=== PATIENT | male | born 1995 ===

== ENCOUNTER 2018-03-26 18:54 | Emergency (ER) | payer SELFPAY ==
[2018-03-26 20:07] VITALS: BP 146/94
--- NOTE | 2018-03-26 22:41 | Cat Scan Report ---
FINAL REPORT PROCEDURE: CT HEAD/BRAIN WO CON TECHNIQUE: Computerized tomography of the head was performed without contrast material. HISTORY: trauma COMPARISON: No prior studies are available for comparison. FINDINGS: Skull and scalp: There is a focal laceration of the right frontal scalp. Bony calvarium is intact.. Paranasal sinuses: Normal. Ventricles and subarachnoid spaces: Normal. Cerebrum: No evidence of hemorrhage, acute infarction or mass . Cerebellum and brainstem: No evidence of hemorrhage, acute infarction or mass. Vasculature: Normal. Comments: None. IMPRESSION: There is right frontal scalp laceration. There is no skull fracture. There is no intracranial hemorrhage.
== END 2018-03-26 20:10 | disposition left against medical advice (07) ==
LOC: ED 18:54
DX: R51 Headache (principal); Z53.21 Procedure and treatment not carried out due to patient leaving prior to being seen by health care provider
CPT/HCPCS: 70450